=== PATIENT | female | born 1950 | race Caucasian/White ===

== ENCOUNTER 2018-04-10 10:33 | Outpatient (CLI) | payer MEDICARE ==
[2018-04-10 11:30] LABS: Hemoglobin 13.6 g/dL (12.0-16.0); Mean Corpuscular HGB CONC 33.4 g/dL (32.0-36.0); Mean Corpuscular Hemoglobin 28.5 pg (27.0-31.0); Mean Corpuscular Volume 85.3 fL (78.0-98.0); Mean Platelet Volume 7.8 fL (7.4-10.4); Platelet Count 263 thou/uL (130-400); RBC Distribution Width 14.7 % (11.5-14.5); Red Blood Cell (RBC) Count 4.79 mill/uL (4.20-5.40); White Blood Cell (WBC) Count 7.3 thou/uL (4.8-10.8)
[2018-04-10 11:49] LABS: Anion Gap 16 mmol/L (10-20); BUN (Urea Nitrogen) 31 mg/dL (9.8-20.1); Calc. Creatinine Clearance 0 mL/min (70-130); Calcium 10.1 mg/dL (7.8-10.44); Carbon Dioxide 22 mmol/L (23-31); Chloride 105 mmol/L (98-107); Estimated GFR-MDRD 58; Glucose 135 mg/dL (80-115); Potassium 4.5 mmol/L (3.5-5.1); Sodium 138 mmol/L (136-145)
== END 2018-04-10 10:34 | disposition home or self-care (01) ==
LOC: LABBT 10:33
PROVIDERS: ATTEND Internal Medicine Cardiovascular Disease
DX: Z01.812 Encounter for preprocedural laboratory examination (principal); I48.2 Chronic atrial fibrillation
CPT/HCPCS: 80048; 85027

== ENCOUNTER 2018-04-15 06:58 | Day surgery (SDC) | payer MEDICARE ==
[2018-04-10 10:47] VITALS: BMI 61.7
[2018-04-15] MEDS ORDERED: PROPOFOL 20 ML ONE (10:39)
[2018-04-15] MEDS ORDERED: PROPOFOL 200 MG/20 ML VIAL ONE (14:03)
--- NOTE | 2018-04-16 13:24 | OP ---
DATE OF PROCEDURE: 04/15/2018 PREPROCEDURE DIAGNOSIS: Atrial fibrillation. POSTPROCEDURE DIAGNOSIS: Sinus rhythm. PROCEDURE PERFORMED: Successful synchronized cardioversion. PROCEDURE IN DETAIL: Patient was consented for the procedure. Conscious sedation with propofol. Th e patient underwent a synchronized cardioversion at 150 and 200 joules. With 200 joules, this was padgett ccessful. IMPRESSION: Successful synchronized cardioversion.
== END 2018-04-15 12:15 | disposition home or self-care (01) ==
LOC: CCL 06:58
PROVIDERS: ATTEND Internal Medicine Cardiovascular Disease
DX: I48.2 Chronic atrial fibrillation (principal); I10 Essential (primary) hypertension; Z79.01 Long term (current) use of anticoagulants; Z79.899 Other long term (current) drug therapy; Z79.82 Long term (current) use of aspirin; Z88.2 Allergy status to sulfonamides; Z88.5 Allergy status to narcotic agent
CPT/HCPCS: 92960; J2704

== ENCOUNTER 2018-05-16 11:26 | Outpatient (CLI) | payer OTHER ==
[2018-05-16 13:14] LABS: #Basophils 0.1 thou/uL (0.0-0.2); #Eosinphils 0.1 thou/uL (0.0-0.7); #Lymphocytes 1.6 thou/uL (1.20-3.40); #Monocytes 0.7 thou/uL (0.11-0.59); %Basophils 0.9 % (0.0-1.0); %Lymphocytes 25.1 % (21.0-51.0); %Neutrophils 61.9 % (42.0-75.0); Mean Corpuscular HGB CONC 33.7 g/dL (32.0-36.0); Mean Corpuscular Hemoglobin 28.9 pg (27.0-31.0); Mean Corpuscular Volume 85.8 fL (78.0-98.0); Platelet Count 233 thou/uL (130-400); RBC Distribution Width 13.5 % (11.5-14.5); Red Blood Cell (RBC) Count 4.83 mill/uL (4.20-5.40); White Blood Cell (WBC) Count 6.5 thou/uL (4.8-10.8)
--- NOTE | 2018-05-16 13:25 | RAD ---
CHEST PA AND LATERAL TWO VIEWS: HISTORY: A 67-year-old female with a history of a preoperative evaluation. COMPARISON: 08/29/2016 FINDINGS: Mild cardiomegaly. No confluent pneumonia, overt edema, or pleural effusion. IMPRESSION: 1. Mild cardiomegaly. 2. No pneumonia, edema, pleural effusion, or other acute process. 3. Mild chronic lung changes. 4. Atherosclerosis of the aorta with ectasia. POS: ELADIA
[2018-05-16 13:28] LABS: Hemoglobin A1c 6.1 % (4.0-6.0)
[2018-05-16 13:33] LABS: ALT (SGPT) 11 U/L (8-55); AST (SGOT) 13 U/L (5-34); Albumin 3.7 g/dL (3.4-4.8); Alkaline Phosphatase 95 U/L (40-150); Anion Gap 12 mmol/L (10-20); BUN (Urea Nitrogen) 30 mg/dL (9.8-20.1); Bilirubin, Direct 0.3 mg/dL (0.1-0.3); Calc. Creatinine Clearance 0 mL/min (70-130); Calcium 10.3 mg/dL (7.8-10.44); Carbon Dioxide 25 mmol/L (23-31); Chloride 104 mmol/L (98-107); Estimated GFR-MDRD 56; Globulin 3.5 g/dL (2.4-3.5); Glucose 113 mg/dL (80-115); Potassium 4.2 mmol/L (3.5-5.1); Protein, Total 7.2 g/dL (6.0-8.3); Sodium 137 mmol/L (136-145)
== END 2018-05-16 11:27 | disposition home or self-care (01) ==
LOC: LABBT 11:26
PROVIDERS: ATTEND Surgery
DX: Z01.818 Encounter for other preprocedural examination (principal); T85.858A Stenosis due to other internal prosthetic devices, implants and grafts, initial encounter; I51.7 Cardiomegaly; I70.0 Atherosclerosis of aorta; I77.819 Aortic ectasia, unspecified site
CPT/HCPCS: 71046; 80053; 80076; 83036; 85025

== ENCOUNTER 2018-05-23 08:13 | Day surgery (SDC) | payer OTHER ==
[2018-05-16 11:58] VITALS: BMI 61.4
[2018-05-23] MEDS ORDERED: CEFAZOLIN/Water 2 GM/20 ML SYRINGE ONE (08:35)
[2018-05-23] MEDS ORDERED: Heparin 5,000 UNITS/ML VIAL ONE (08:36)
[2018-05-23] MEDS ORDERED: Bupivacaine/Epinephrine 0.25% 30 ML VIAL ONE (10:08)
[2018-05-23] MEDS ORDERED: Fentanyl 250 MCG/5 ML VIAL ONE (10:20)
[2018-05-23] MEDS ORDERED: Midazolam HCl 2 mg/2 ml Vial ONE (10:20)
[2018-05-23] MEDS ORDERED: Fentanyl 100 MCG/2 ML VIAL ONE (12:08)
[2018-05-23] MEDS ORDERED: Lidocaine 1% PF 5 ML VIAL ONE (12:20)
[2018-05-23] MEDS ORDERED: Glycopyrrolate 0.2 MG/ML 5 ML SYRINGE ONE (12:20)
[2018-05-23] MEDS ORDERED: PROPOFOL 200 MG/20 ML VIAL ONE (12:20)
[2018-05-23] MEDS ORDERED: Ondansetron HCl/PF 4 MG/2 ML Vial ONE (12:20)
[2018-05-23] MEDS ORDERED: ePHEDrine/0.9% NaCl/PF SYRINGE 50 mg/10 ml ONE (12:20)
--- NOTE | 2018-05-24 07:38 | OP ---
DATE OF PROCEDURE: 05/23/2018 PREOPERATIVE DIAGNOSIS: Severe gastroesophageal reflux disease with a history of laparoscopic gastri c band. POSTOPERATIVE DIAGNOSIS: Severe gastroesophageal reflux disease with a history of laparoscopic gastr ic band. PROCEDURE: Laparoscopic removal of gastric band and subcutaneous port. SURGEON: Dr. Chuck Trevino ESTIMATED BLOOD LOSS: Minimal. COMPLICATIONS: None. SPECIMEN: None. TECHNIQUE: The patient was taken to the operating room and placed supine on the table. After genera l anesthetic was obtained, arms and legs were double strapped to bariatric table. OG tube was used t o decompress the stomach. Left subcostal 5-mm Optiview trocar placed in the usual fashion and high-f low pneumoperitoneum was obtained. There were multiple adhesions in the abdominal cavity. An upper midline 5 mm port and a right subcostal 5 mm port were placed under direct visualization. Nathansen retractor was placed carefully used to raise the liver off the GE junction and the lap band. The sca r tissue over the band is cauterized. The band is able to be unbuckled. The band is able to be florina stephanie from around the stomach. The tubing going up to the exit site and the posterior abdominal wall w as cut. The left subcostal 5 mm port is enlarged to a 12. This allows the band to be removed. This fascial defect was closed using GraNee needle 0 Vicryl tie. The Nathansen was removed under direct visualization. Pneumoperitoneum was let down. The incision is made over the previous port site. Th e port is dissected away from the abdominal wall. The port and its tubing going into the abdominal c avity are all removed. The lap band and port is able to be reconstructed on the back table without a ny missing components. The wounds were all irrigated and closed using 3-0 Vicryl, 4-0 Monocryl, and Dermabond. The patient went to recovery in stable condition. All instrument counts, needle counts, and lap counts were correct.
== END 2018-05-23 14:28 | disposition home or self-care (01) ==
LOC: SDC 08:13
PROVIDERS: ATTEND Surgery
PROC: 0DP64CZ Removal of Extraluminal Device from Stomach, Percutaneous Endoscopic Approach (ICD-10-PCS; principal; 2018-05-23)
DX: K21.9 Gastro-esophageal reflux disease without esophagitis (principal); I10 Essential (primary) hypertension; I48.91 Unspecified atrial fibrillation; K31.1 Adult hypertrophic pyloric stenosis; E66.01 Morbid (severe) obesity due to excess calories; Z68.44 Body mass index [BMI] 60.0-69.9, adult; Z79.899 Other long term (current) drug therapy; Z79.82 Long term (current) use of aspirin; Z88.2 Allergy status to sulfonamides; Z88.5 Allergy status to narcotic agent; Z91.048 Other nonmedicinal substance allergy status; Z98.84 Bariatric surgery status
CPT/HCPCS: 96374; J1644; J2001; J2250; J2405; J2704; J3010

== ENCOUNTER 2018-07-12 08:51 | Outpatient (CLI) | payer OTHER | END 2018-07-12 08:52 | disposition home or self-care (01) | LOC: DTY/OP 08:51 | PROVIDERS: ATTEND Surgery | DX: E66.01 Morbid (severe) obesity due to excess calories (principal) | CPT/HCPCS: 97802 ==

== ENCOUNTER 2018-08-13 14:30 | Inpatient (IN) | payer MEDICARE ==
[2018-08-20] MEDS ORDERED: CEFAZOLIN 2 GM/50 ML BAG ONE (07:27)
[2018-08-20] MEDS ORDERED: Heparin 5,000 UNITS/ML VIAL ONE (07:28)
[2018-08-20] MEDS ORDERED: Bupivacaine/Epinephrine 0.25% 30 ML VIAL ONE (08:49)
[2018-08-20] MEDS ORDERED: Fentanyl 100 MCG/2 ML VIAL ONE ×2 (09:05→11:11)
[2018-08-20] MEDS ORDERED: SUGAMMADEX SODIUM 200 MG/2 ML VIAL ONE (10:49)
[2018-08-20] MEDS ORDERED: Naloxone HCl 0.4 mg/ml Vial IV PRN (11:13)
[2018-08-20] MEDS ORDERED: diphenhydrAMINE 50 MG/ML VIAL IVP PRN ×2 (11:13→12:09)
[2018-08-20] MEDS ORDERED: Promethazine HCl 25 MG/ML VIAL IM PRN ×2 (11:13→12:09)
[2018-08-20] MEDS ORDERED: Zolpidem Tartrate 5 MG TAB PO PRN (11:13)
[2018-08-20] MEDS ORDERED: diphenhydrAMINE 50 MG/ML VIAL IM PRN (11:13)
[2018-08-20] MEDS ORDERED: fentaNYL Citrate/PF 2,000 MCG in Sodium Chloride 0.9% 60 ML IV PRN (11:13)
[2018-08-20] MEDS ORDERED: diphenhydrAMINE 25 MG CAP PO PRN (11:13)
[2018-08-20] MEDS ORDERED: Communication Order-Pharmacy FS SCH (11:15)
[2018-08-20] MEDS ORDERED: Hydrocodone-Acetamin 15 ML UDCUP PO PRN (12:09)
[2018-08-20] MEDS ORDERED: Dextrose 50% Abboject 50 ML SYRINGE SLOW IVP PRN (12:09)
[2018-08-20] MEDS ORDERED: hydrALAZINE 20 MG/ML VIAL SLOW IVP PRN (12:09)
[2018-08-20] MEDS ORDERED: Ondansetron PF 4 MG/2 ML Vial IVP PRN (12:09)
[2018-08-20] MEDS ORDERED: Acetaminophen 1,000 MG in Premix Bag 1 BAG IVPB SCH (12:09)
[2018-08-20] MEDS ORDERED: Dextrose 5% in Water 1,000 ML IV PRN (12:09)
[2018-08-20 12:45] VITALS: BMI 61.9
--- NOTE | 2018-08-20 13:34 | OP ---
DATE OF PROCEDURE: 08/20/2018 PREOPERATIVE DIAGNOSES: 1. Morbid obesity with a body mass index of 62. 2. Hypertension. 3. Chronic atrial fibrillation. 4. Chronic joint pain. POSTOPERATIVE DIAGNOSES: 1. Morbid obesity with a body mass index of 62. 2. Hypertension. 3. Chronic atrial fibrillation. 4. Chronic joint pain. PROCEDURE: 1. Laparoscopic sleeve gastrectomy [place] staple line reinforcements and 38 Greek bougie. 2. Esophagogastroduodenoscopy. SURGEON: Dr. Chuck Trevino ANESTHESIA: General. ESTIMATED BLOOD LOSS: 50 mL. COMPLICATIONS: None. FINDINGS: Normal postoperative EGD. PROCEDURE IN DETAIL: The patient was taken to the operating room, placed supine on the table. After general anesthetic was obtained, arms and legs are double strapped to bariatric table. OG tube was used to decompress the stomach. Left subcostal 5-mm Optiview trocar was placed in the usual fashion without injury and high-flow pneumoperitoneum was obtained. Left and right abdominal trocar ports as well as a right subcostal 5 mm port were placed under direct visualization. A 5 mm incision made th e xiphoid and Lucas used to raise the liver off the GE junction. There were multiple adhesions f rom previous surgery in the upper abdomen. Some of these were taken down sharply without injury. Sh ort gastrics were taken down from a distance of 5 cm proximal to the pylorus all the way to the left ralph of diaphragm. Left ralph, angle of His completely dissected as is the posterior fundus. There i s no hiatal hernia. Short gastric taken down to a distance of 6 cm proximal to the pylorus. OG tube was removed and 38 bougie was brought in, its tip left in the antrum of the stomach. Multiple loads of an [place] stapling device with [place] staple and reinforcements were used to form the sleeve. The first was a green load fired up a distance of 6 cm proximal to pylorus angled up towards the incisur a. Multiple loads were then fired up along the bougie, stomach is completely transected at the angle of His. The stomach was removed from the left abdominal incision. This fascial defect was closed u sing GraNee needle 0 Vicryl tie. There is no bleeding in the abdomen. Bougie was removed. EGD scop e was passed into the esophagus, stomach to the level of the duodenum without obstruction or strictur e. There is no air leakage or bleeding on the staple line. EGD scope was used to decompress the sto mach, it was pulled and removed. The Nathansen retractor was removed under direct visualization with out bleeding. All ports were removed under direct visualization. There was some oozing at the right lower abdominal trocar site and this was closed using GraNee needle 0 Vicryl tie as well. Pneumoper itoneum was let down. All ports were irrigated and closed using 4-0 Monocryl and Dermabond. The pat ient was en route to recovery in stable condition. All instrument counts, needle counts, lap counts were correct.
[2018-08-20] MEDS: Ondansetron PF 4 MG/2 ML Vial IVP PRN ×2 (16:22→23:23)
[2018-08-20] MEDS: D5 1/2 NS w/20 mEq KCL 1,000 ML IV SCH ×3 (16:23→23:24)
[2018-08-20] MEDS ORDERED: ePHEDrine/0.9% NaCl/PF SYRINGE 50 mg/10 ml ONE (17:38)
[2018-08-20] MEDS ORDERED: PROPOFOL 200 MG/20 ML VIAL ONE (17:38)
[2018-08-20] MEDS ORDERED: Glycopyrrolate 0.2 MG/ML 5 ML SYRINGE ONE ×2 (17:38)
[2018-08-20] MEDS ORDERED: Ondansetron PF 4 MG/2 ML Vial ONE (17:38)
[2018-08-20] MEDS ORDERED: Lidocaine 1% PF 5 ML VIAL ONE (17:38)
[2018-08-20] MEDS ORDERED: Metoprolol Tartrate 50 MG TAB PO SCH (21:00)
[2018-08-20] MEDS: Metoprolol Tartrate 50 MG TAB PO SCH (21:12)
[2018-08-20] MEDS: Flecainide 50 MG TAB PO SCH (21:12)
[2018-08-20] MEDS: Acetaminophen 1,000 MG in Premix Bag 1 BAG IVPB SCH (23:24)
[2018-08-21] MEDS: Acetaminophen 1,000 MG in Premix Bag 1 BAG IVPB SCH ×2 (05:20→11:12)
[2018-08-21 05:25] LABS: #Lymphocytes 0.7 thou/uL (1.20-3.40); #Monocytes 0.7 thou/uL (0.11-0.59); %Basophils 0.2 % (0.0-1.0); %Eosinophils 0.5 % (0.0-10.0); %Lymphocytes 7.8 % (21.0-51.0); %Monocytes 8.5 % (0.0-10.0); Anion Gap 12 mmol/L (10-20); BUN (Urea Nitrogen) 39 mg/dL (9.8-20.1); Calc. Creatinine Clearance 148 mL/min (70-130); Calcium 9.2 mg/dL (7.8-10.44); Carbon Dioxide 24 mmol/L (23-31); Chloride 105 mmol/L (98-107); Estimated GFR-MDRD 59; Glucose 147 mg/dL (80-115); Hemoglobin 12.3 g/dL (12.0-16.0); Mean Corpuscular HGB CONC 31.3 g/dL (32.0-36.0); Mean Corpuscular Hemoglobin 28.3 pg (27.0-31.0); Mean Corpuscular Volume 90.3 fL (78.0-98.0); Mean Platelet Volume 9.1 fL (7.4-10.4); Platelet Count 216 thou/uL (130-400); Potassium 4.7 mmol/L (3.5-5.1); RBC Distribution Width 12.8 % (11.5-14.5); Red Blood Cell (RBC) Count 4.33 mill/uL (4.20-5.40); Sodium 136 mmol/L (136-145); White Blood Cell (WBC) Count 8.5 thou/uL (4.8-10.8)
--- NOTE | 2018-08-21 08:00 | OP ---
DATE OF PROCEDURE: 08/20/2018 PREOPERATIVE DIAGNOSES: 1. Morbid obesity with a body mass index of 65 2. Hypertension. 3. Chronic atrial fibrillation. POSTOPERATIVE DIAGNOSES: 1. Morbid obesity with a body mass index of 65 2. Hypertension. 3. Chronic atrial fibrillation. PROCEDURE: 1. Laparoscopic sleeve gastrectomy with [place] staple and reinforcements and 38 [place]ian bougie. 2. EGD. SURGEON: Dr. Chuck Trevino ANESTHESIA: General. ESTIMATED BLOOD LOSS: Minimal. COMPLICATIONS: None. FINDINGS: Normal postoperative EGD. PROCEDURE IN DETAIL: The patient was taken to the operating room and placed supine on the table. Af ter general anesthetic was obtained, arms and legs were double strapped to bariatric table. OG tube was used to decompress the stomach. The abdomen is prepped and draped in sterile fashion. Left subc ostal 5-mm Optiview trocar was placed in the usual fashion and high-flow pneumoperitoneum was obtaine d. A right subcostal 5 mm port is placed as well. There were a few adhesions in the posterior abdom inal wall and the upper abdomen. There were significant adhesions in the lower abdomen from prior pa sh incisional hernia repair and for the upper abdominal adhesions were taken down and placed the lapa roscopic port. There was no damage to any intraabdominal structures during the dissection. The diss ection was all done sharply without energy. Left and right abdominal 12 mm ports were placed under d irect visualization. A 5 mm incision was made at the xiphoid and the Nathansen's used to raise the l iver off the GE junction. The short gastrics were taken down to a distance of 6 cm proximal to the p ylorus all the way to the left ralph of the diaphragm. Left ralph, angle of His, posterior fundus is c ompletely dissected. There were a few anterior adhesions from prior lap band that were taken down. A 38 bougie is brought in and its tip left in the antrum of the stomach and the OG tube was removed. Multiple loads of an [place] stapling device with [place] staple line reinforcements used to form the s leeve. The first was a green load fired up at a distance of 6 cm proximal to the pylorus angled up t owards the incisura. Multiple loads were then fired up along the bougie, stomach is completely trans ected at the angle of His. The stomach was removed from the left abdominal incision. This fascial d efects closed using the GraNee needle and the 0 Vicryl tie. The port is then replaced because the padgett ture was not tied down. The bougie was removed. EGD scope was passed into the esophagus, stomach to the level of the duodenum without obstruction. There was no stricture at the incisura. No air leak age or bleeding through the staple line. EGD scope was used to decompress the stomach. It was pulle d and removed. Nathansen retractor was removed under direct visualization without bleeding. All por ts are removed under direct visualization. Pneumoperitoneum was let down. GraNee needle 0 Vicryl ti es used to close the 12-mm trocar site in the right abdomen as well secondary to bleeding. All port sites were infiltrated using local anesthetic. All ports are removed under camera visualization. Pn eumoperitoneum was let down. The patient is en route to recovery in stable condition. All instrumen t counts, needle counts, lap counts are correct.
[2018-08-21] MEDS: Metoprolol Tartrate 50 MG TAB PO SCH (08:43)
[2018-08-21] MEDS ORDERED: Pantoprazole 40 MG VIAL IVP SCH (09:00)
[2018-08-21] MEDS ORDERED: Lisinopril 20 MG TAB PO SCH (09:00)
[2018-08-21] MEDS ORDERED: Enoxaparin Sodium 40 MG/0.4 ML SYRINGE SC SCH (09:00)
[2018-08-21] MEDS: Flecainide 50 MG TAB PO SCH (09:28)
[2018-08-21] MEDS ORDERED: Hydrocodone-Acetamin 15 ML UDCUP PO PRN (10:05)
[2018-08-21 15:55] VITALS: BP 148/63; TEMP 97.4
--- NOTE | 2018-08-22 02:46 | DIS ---
DATE OF ADMISSION: 08/20/2018 DATE OF DISCHARGE: 08/21/2018 ADMIT DIAGNOSES: 1. Morbid obesity. 2. Hypertension. DISCHARGE DIAGNOSES: 1. Morbid obesity. 2. Hypertension. PROCEDURE: Laparoscopic sleeve gastrectomy by Dr. Trevino without complication. CONDITION AT DISCHARGE: Improved. STAFF: Chuck Trevino MD HOSPITAL COURSE: On postop day #1, the patient had early date nausea. This improved throughout the day. She was able to tolerate broth and the liquids without difficulty. She is being discharged altaf e. She is going to resume her Xarelto tomorrow. Hold her Lasix and hydrochlorothiazide until follow up.
== END 2018-08-21 16:55 | disposition home or self-care (01) | DRG 621 ==
LOC: SURG A 08-20 06:18 → SURG B 08-20 11:50
PROVIDERS: ADMIT Surgery; ATTEND Surgery
PROC: 0DB60Z3 Excision of Stomach, Open Approach, Vertical (ICD-10-PCS; principal; 2018-08-20)
PROC: 0DJ08ZZ Inspection of Upper Intestinal Tract, Via Natural or Artificial Opening Endoscopic (ICD-10-PCS; 2018-08-20)
DX: E66.01 Morbid (severe) obesity due to excess calories (principal); I10 Essential (primary) hypertension; Z68.44 Body mass index [BMI] 60.0-69.9, adult; G89.29 Other chronic pain; I48.2 Chronic atrial fibrillation; T80.89XA Other complications following infusion, transfusion and therapeutic injection, initial encounter; R11.0 Nausea; Z79.899 Other long term (current) drug therapy; Z79.82 Long term (current) use of aspirin; Z79.891 Long term (current) use of opiate analgesic; Z79.01 Long term (current) use of anticoagulants; Z88.2 Allergy status to sulfonamides; Z88.5 Allergy status to narcotic agent; Z91.048 Other nonmedicinal substance allergy status
CPT/HCPCS: 36415; 80048; 85025; 88307; 88312; 94760; C9113; J0131; J1644; J1650; J2001; J2405; J2550; J2704; J3010; J7050

== ENCOUNTER 2018-08-13 14:40 | Outpatient (CLI) | payer MEDICARE ==
[2018-08-13 15:30] LABS: #Basophils 0.1 thou/uL (0.0-0.2); #Eosinphils 0.2 thou/uL (0.0-0.7); #Lymphocytes 2.3 thou/uL (1.20-3.40); #Monocytes 0.8 thou/uL (0.11-0.59); #Neutrophils 4.2 thou/uL (1.40-6.50); %Eosinophils 2.2 % (0.0-10.0); %Lymphocytes 30.3 % (21.0-51.0); %Monocytes 10.3 % (0.0-10.0); %Neutrophils 56.3 % (42.0-75.0); Hemoglobin 14.1 g/dL (12.0-16.0); Mean Corpuscular HGB CONC 31.9 g/dL (32.0-36.0); Mean Corpuscular Hemoglobin 28.6 pg (27.0-31.0); Mean Corpuscular Volume 89.7 fL (78.0-98.0); Mean Platelet Volume 8.4 fL (7.4-10.4); Platelet Count 274 thou/uL (130-400); RBC Distribution Width 12.9 % (11.5-14.5); Red Blood Cell (RBC) Count 4.94 mill/uL (4.20-5.40); White Blood Cell (WBC) Count 7.5 thou/uL (4.8-10.8)
[2018-08-13 15:49] LABS: Hemoglobin A1c 6.4 % (4.0-6.0)
[2018-08-13 15:56] LABS: ALT (SGPT) 12 U/L (8-55); AST (SGOT) 13 U/L (5-34); Albumin 4.2 g/dL (3.4-4.8); Alkaline Phosphatase 100 U/L (40-150); Anion Gap 16 mmol/L (10-20); BUN (Urea Nitrogen) 36 mg/dL (9.8-20.1); Bilirubin, Direct 0.3 mg/dL (0.1-0.3); Calc. Creatinine Clearance 0 mL/min (70-130); Calcium 10.4 mg/dL (7.8-10.44); Carbon Dioxide 21 mmol/L (23-31); Chloride 107 mmol/L (98-107); Estimated GFR-MDRD 55; Globulin 3.2 g/dL (2.4-3.5); Glucose 127 mg/dL (80-115); Potassium 4.1 mmol/L (3.5-5.1); Protein, Total 7.4 g/dL (6.0-8.3); Sodium 140 mmol/L (136-145)
== END 2018-08-13 14:41 | disposition home or self-care (01) ==
LOC: LABBT 14:40
PROVIDERS: ATTEND Surgery
DX: Z01.812 Encounter for preprocedural laboratory examination (principal); E66.01 Morbid (severe) obesity due to excess calories; I10 Essential (primary) hypertension; Z68.44 Body mass index [BMI] 60.0-69.9, adult
CPT/HCPCS: 80053; 80076; 83036; 85025

== ENCOUNTER 2021-09-04 19:30 | Outpatient (CLI) | payer MEDICARE | END 2021-09-04 19:31 | disposition home or self-care (01) | LOC: SLEEPLAB 19:30 | PROVIDERS: ATTEND Physician Assistant | DX: G47.33 Obstructive sleep apnea (adult) (pediatric) (principal); R06.83 Snoring; G47.10 Hypersomnia, unspecified; G47.00 Insomnia, unspecified; I48.91 Unspecified atrial fibrillation; R06.02 Shortness of breath; E11.9 Type 2 diabetes mellitus without complications; I10 Essential (primary) hypertension | CPT/HCPCS: 95811 ==

== ENCOUNTER 2022-11-11 12:48 | Inpatient (IN) | payer MEDICARE ==
[2022-11-11 13:35] LABS: ALT (SGPT) 12 U/L (8-55); AST (SGOT) 15 U/L (5-34); Alkaline Phosphatase 98 U/L (40-110); Anion Gap 12 mmol/L (10-20); BUN (Urea Nitrogen) 29 mg/dL (9.8-20.1); Bilirubin, Total 1.4 mg/dL (0.2-1.2); Calc. Creatinine Clearance 0 mL/min (70-130); Calcium 9.4 mg/dL (7.8-10.44); Carbon Dioxide 23 mmol/L (23-31); Chloride 111 mmol/L (98-107); Estimated GFR 69; Globulin 2.9 g/dL (2.4-3.5); Glucose 108 mg/dL (83-110); Potassium 3.9 mmol/L (3.5-5.1); Protein, Total 5.9 g/dL (5.8-8.1); Sodium 142 mmol/L (136-145)
[2022-11-11 13:38] LABS: Hemoglobin 6.7 g/dL (12.0-16.0); Mean Corpuscular Hemoglobin 16.8 pg (27.0-31.0); Mean Corpuscular Volume 60.1 fl (78.0-98.0); Mean Platelet Volume 6.6 fL (7.4-10.4); Platelet Count 223 10x3/uL (130-400); RBC Distribution Width 20.9 % (11.5-14.5); Red Blood Cell (RBC) Count 3.98 mill/uL (4.20-5.40)
[2022-11-11 13:51] LABS: #Basophils 0.1 thou/uL (0.0-0.2); #Eosinphils 0.1 thou/uL (0.0-0.7); #Lymphocytes 1.1 thou/uL (1.20-3.40); #Monocytes 0.7 thou/uL (0.11-0.59); #Neutrophils 2.9 thou/uL (1.40-6.50); %Basophils 1.6 % (0.0-1.0); %Eosinophils 2.2 % (0.0-10.0); %Lymphocytes 22.1 % (21.0-51.0); %Neutrophils 60.1 % (42.0-75.0); Anisocytosis SLIGHT = 6-15 cells (100X) (0-5/hpf); Hypochromia MODERATE=16-30 cells (100X) (0-5/hpf); MDiff Complete? YES; Microcytosis MODERATE=15-30 cells (100X) (0-5/hpf); Ovalocytes SLIGHT = 2-5 cells (100X) (0-1/hpf); Platelet Morphology Comment Appears Adequate; Polychromasia SLIGHT = 2-3 cells (100X) (0-2/hpf); Reflex for Review?? YES; Target Cells SLIGHT = 2-5 cells (100X) (0-1/hpf); Tear Drops SLIGHT = 2-5 cells (100X) (0-1/hpf); White Blood Cell (WBC) Count 4.8 10x3/uL (4.8-10.8)
[2022-11-11] MEDS ORDERED: Furosemide 20 MG/2 ML VIAL ONE (17:44)
[2022-11-11] MEDS ORDERED: Ondansetron PF 4 MG/2 ML Vial IVP PRN (18:30)
[2022-11-11] MEDS ORDERED: Acetaminophen 325 MG TAB PO PRN (18:30)
[2022-11-11] MEDS ORDERED: Ondansetron ODT 4 MG TAB SL PRN (18:30)
[2022-11-11] MEDS ORDERED: Magnesium 2 GM/50 ML(in water) 2 GM in Premix Bag 1 BAG IVPB SCH (19:00)
[2022-11-11 19:25] LABS: Magnesium 1.8 mg/dL (1.6-2.6)
[2022-11-11] MEDS ORDERED: Aspirin 81 mg Enteric Coated Tablet PO SCH (20:30)
[2022-11-11] MEDS: Aspirin 81 mg Enteric Coated Tablet PO SCH (22:28)
[2022-11-11] MEDS: Metoprolol Tartrate 100 MG TAB PO SCH (22:37)
[2022-11-11] MEDS: Flecainide 50 MG TAB PO SCH (22:37)
[2022-11-12 01:32] VITALS: BMI 66.4
[2022-11-12 06:05] LABS: ALT (SGPT) 12 U/L (8-55); AST (SGOT) 17 U/L (5-34); Albumin 2.9 g/dL (3.4-4.8); Alkaline Phosphatase 92 U/L (40-110); Anion Gap 14 mmol/L (10-20); BUN (Urea Nitrogen) 28 mg/dL (9.8-20.1); Bilirubin, Total 2.8 mg/dL (0.2-1.2); Calc. Creatinine Clearance 170 mL/min (70-130); Calcium 9.3 mg/dL (7.8-10.44); Carbon Dioxide 21 mmol/L (23-31); Chloride 110 mmol/L (98-107); Estimated GFR 74; Globulin 2.8 g/dL (2.4-3.5); Glucose 96 mg/dL (83-110); Potassium 3.8 mmol/L (3.5-5.1); Protein, Total 5.7 g/dL (5.8-8.1); Sodium 141 mmol/L (136-145)
[2022-11-12 06:50] LABS: Anisocytosis MODERATE=16-30 cells (100X) (0-5/hpf); Eosinophils 1 % (0-10); Hemoglobin 7.2 g/dL (12.0-16.0); Hypochromia MODERATE=16-30 cells (100X) (0-5/hpf); Lymphocytes 23 % (21-51); MDiff Complete? YES; Mean Corpuscular Hemoglobin 17.4 pg (27.0-31.0); Mean Corpuscular Volume 62.1 fl (78.0-98.0); Mean Platelet Volume 6.8 fL (7.4-10.4); Microcytosis SLIGHT = 6-15 cells (100X) (0-5/hpf); Monocytes 11 % (0-10); Neutrophil 65 % (42-75); Ovalocytes SLIGHT = 2-5 cells (100X) (0-1/hpf); Platelet Count 205 10x3/uL (130-400); Platelet Morphology Comment Appears Adequate; Polychromasia SLIGHT = 2-3 cells (100X) (0-2/hpf); RBC Distribution Width 23.3 % (11.5-14.5); Red Blood Cell (RBC) Count 4.15 mill/uL (4.20-5.40); White Blood Cell (WBC) Count 4.3 10x3/uL (4.8-10.8)
[2022-11-12] MEDS: Flecainide 50 MG TAB PO SCH (08:11)
[2022-11-12] MEDS: Aspirin 81 mg Enteric Coated Tablet PO SCH (08:12)
[2022-11-12] MEDS: Metoprolol Tartrate 100 MG TAB PO SCH ×2 (08:12→20:20)
[2022-11-12] MEDS: Acetaminophen 325 MG TAB PO SCH ×4 (10:06→22:04)
[2022-11-12] MEDS: Furosemide 40 MG/4 ML VIAL SLOW IVP SCH (14:25)
[2022-11-12] MEDS ORDERED: GoLYTELY 4,000 ml Bottle PO SCH (19:45)
[2022-11-12] MEDS ORDERED: AFRIN NASAL MIST 15 ML BOT NS SCH (21:00)
[2022-11-12] MEDS: Oxymetazoline HCl 0.05% (30 ML BOT) NS SCH (22:02)
[2022-11-13 05:31] LABS: Hemoglobin A1c 5.5 % (4.0-6.0)
[2022-11-13 05:39] LABS: Anion Gap 13 mmol/L (10-20); BUN (Urea Nitrogen) 28 mg/dL (9.8-20.1); Calc. Creatinine Clearance 158 mL/min (70-130); Calcium 9.4 mg/dL (7.8-10.44); Carbon Dioxide 23 mmol/L (23-31); Cardiac Risk 3.2 (Less than 4.5); Chloride 109 mmol/L (98-107); Cholesterol 95 mg/dl (< 200 Desired); Estimated GFR 65; Glucose 96 mg/dL (83-110); HDL Cholesterol 30 mg/dL (>60 Neg Risk); LDL Cholesterol, Calculated 49 mg/dL; Potassium 3.9 mmol/L (3.5-5.1); Sodium 141 mmol/L (136-145); Triglycerides 81 mg/dL (Less than 150)
[2022-11-13 05:51] LABS: Band 5 % (5-11); Eosinophils 1 % (0-10); Hemoglobin 7.6 g/dL (12.0-16.0); Hypochromia SLIGHT = 6-15 cells (100X) (0-5/hpf); Lymphocytes 21 % (21-51); MDiff Complete? YES; Mean Corpuscular Hemoglobin 17.6 pg (27.0-31.0); Mean Corpuscular Volume 62.9 fl (78.0-98.0); Mean Platelet Volume 7.5 fL (7.4-10.4); Monocytes 4 % (0-10); Neutrophil 68 % (42-75); Platelet Count 232 10x3/uL (130-400); Platelet Morphology Comment Appears Adequate; Polychromasia SLIGHT = 2-3 cells (100X) (0-2/hpf); RBC Distribution Width 23.3 % (11.5-14.5); Reactive Lymphocytes 1 % (0-10); Red Blood Cell (RBC) Count 4.32 mill/uL (4.20-5.40)
[2022-11-13] MEDS: Furosemide 40 MG/4 ML VIAL SLOW IVP SCH ×2 (05:57→14:36)
[2022-11-13] MEDS: Acetaminophen 325 MG TAB PO SCH ×5 (05:57→21:47)
[2022-11-13] MEDS: Spironolactone 25 MG TAB PO SCH (09:22)
[2022-11-13] MEDS: Aspirin 81 mg Enteric Coated Tablet PO SCH (09:22)
[2022-11-13] MEDS: Metoprolol Tartrate 100 MG TAB PO SCH ×2 (09:22→21:47)
[2022-11-13] MEDS: Oxymetazoline HCl 0.05% (30 ML BOT) NS SCH (09:26)
[2022-11-13 09:36] LABS: Anisocytosis MODERATE=16-30 cells (100X) (0-5/hpf); Band 1 % (5-11); Eosinophils 1 % (0-10); Hemoglobin 7.5 g/dL (12.0-16.0); Hypochromia MODERATE=16-30 cells (100X) (0-5/hpf); Lymphocytes 11 % (21-51); MDiff Complete? YES; Mean Corpuscular Hemoglobin 17.4 pg (27.0-31.0); Mean Corpuscular Volume 62.2 fl (78.0-98.0); Mean Platelet Volume 7.1 fL (7.4-10.4); Microcytosis MODERATE=15-30 cells (100X) (0-5/hpf); Monocytes 11 % (0-10); Neutrophil 72 % (42-75); Ovalocytes SLIGHT = 2-5 cells (100X) (0-1/hpf); Platelet Count 229 10x3/uL (130-400); Platelet Morphology Comment Appears Adequate; Polychromasia MODERATE = 3-4 cells (100X) (0-2/hpf); RBC Distribution Width 23.7 % (11.5-14.5); Reactive Lymphocytes 4 % (0-10); Schistocytes SLIGHT = 2-5 cells (100X) (0-1/hpf); Stomatocytes SLIGHT = 2-5 cells (100X) (0-1/hpf); Target Cells SLIGHT = 2-5 cells (100X) (0-1/hpf); Tear Drops SLIGHT = 2-5 cells (100X) (0-1/hpf); White Blood Cell (WBC) Count 4.5 10x3/uL (4.8-10.8)
[2022-11-13] MEDS ORDERED: Metolazone 5 MG TAB PO SCH (17:15)
[2022-11-14] MEDS: Oxymetazoline HCl 0.05% (30 ML BOT) NS SCH ×4 (00:33→21:59)
[2022-11-14] MEDS: Furosemide 40 MG/4 ML VIAL SLOW IVP SCH ×2 (05:51→14:28)
[2022-11-14] MEDS: Acetaminophen 325 MG TAB PO SCH ×5 (05:51→22:00)
[2022-11-14 05:59] LABS: Anion Gap 13 mmol/L (10-20); BUN (Urea Nitrogen) 27 mg/dL (9.8-20.1); Calc. Creatinine Clearance 149 mL/min (70-130); Calcium 9.4 mg/dL (7.8-10.44); Carbon Dioxide 25 mmol/L (23-31); Chloride 106 mmol/L (98-107); Estimated GFR 63; Glucose 95 mg/dL (83-110); Potassium 3.6 mmol/L (3.5-5.1); Sodium 140 mmol/L (136-145)
[2022-11-14] MEDS ORDERED: Metolazone 5 MG TAB PO SCH (08:15)
[2022-11-14] MEDS: Aspirin 81 mg Enteric Coated Tablet PO SCH (08:43)
[2022-11-14] MEDS: Spironolactone 25 MG TAB PO SCH (08:43)
[2022-11-14] MEDS: Metoprolol Tartrate 100 MG TAB PO SCH ×2 (08:43→20:43)
[2022-11-15] MEDS: Acetaminophen 325 MG TAB PO SCH ×5 (05:47→21:34)
[2022-11-15] MEDS: Furosemide 40 MG/4 ML VIAL SLOW IVP SCH ×2 (05:48→13:44)
[2022-11-15] MEDS: Spironolactone 25 MG TAB PO SCH (09:12)
[2022-11-15] MEDS: Oxymetazoline HCl 0.05% (30 ML BOT) NS SCH ×2 (09:12→20:51)
[2022-11-15] MEDS: Metoprolol Tartrate 100 MG TAB PO SCH ×2 (09:12→20:51)
[2022-11-15] MEDS: Aspirin 81 mg Enteric Coated Tablet PO SCH (09:12)
[2022-11-15 10:27] LABS: Hemoglobin 7.1 g/dL (12.0-16.0); Mean Corpuscular HGB CONC 27.4 g/dL (32.0-36.0); Mean Corpuscular Hemoglobin 17.1 pg (27.0-31.0); Mean Corpuscular Volume 62.3 fl (78.0-98.0); Mean Platelet Volume 6.6 fL (7.4-10.4); Platelet Count 223 10x3/uL (130-400); RBC Distribution Width 24.3 % (11.5-14.5); Red Blood Cell (RBC) Count 4.16 mill/uL (4.20-5.40)
[2022-11-15 11:37] LABS: Eosinophils 5 % (0-10); Hypochromia MARKED = >30 cells (100X) (0-5/hpf); Lymphocytes 35 % (21-51); MDiff Complete? YES; Microcytosis MARKED = >30 cells (100X) (0-5/hpf); Monocytes 8 % (0-10); Neutrophil 52 % (42-75); Platelet Morphology Comment Appears Adequate; Polychromasia SLIGHT = 2-3 cells (100X) (0-2/hpf); Schistocytes SLIGHT = 2-5 cells (100X) (0-1/hpf)
[2022-11-15] MEDS ORDERED: GoLYTELY 4,000 ml Bottle PO SCH (17:00)
[2022-11-16] MEDS: Acetaminophen 325 MG TAB PO SCH ×4 (06:03→17:52)
[2022-11-16] MEDS: Furosemide 40 MG/4 ML VIAL SLOW IVP SCH ×2 (06:06→14:12)
[2022-11-16 06:35] LABS: Anion Gap 14 mmol/L (10-20); BUN (Urea Nitrogen) 24 mg/dL (9.8-20.1); Calc. Creatinine Clearance 127 mL/min (70-130); Calcium 9.6 mg/dL (7.8-10.44); Carbon Dioxide 32 mmol/L (23-31); Chloride 98 mmol/L (98-107); Estimated GFR 54; Glucose 81 mg/dL (83-110); Potassium 3.5 mmol/L (3.5-5.1); Sodium 140 mmol/L (136-145)
[2022-11-16] MEDS ORDERED: Midazolam HCl 2 mg/2 ml Vial ONE (08:58)
[2022-11-16] MEDS ORDERED: Ketamine 50 MG/ML (10ML VIAL) ONE (08:58)
[2022-11-16] MEDS ORDERED: Dexmedetomidine 200 MCG/2 ML VIAL ONE (08:58)
[2022-11-16] MEDS ORDERED: PROPOFOL 200 MG/20 ML VIAL ONE (09:08)
[2022-11-16] MEDS ORDERED: Lidocaine 1% PF 5 ML VIAL ONE (09:08)
[2022-11-16] MEDS ORDERED: Promethazine HCl 25 MG/ML VIAL IM PRN (09:26)
[2022-11-16] MEDS ORDERED: Ondansetron HCl/PF 4 MG/2 ML Vial IVP PRN (09:26)
[2022-11-16] MEDS: Aspirin 81 mg Enteric Coated Tablet PO SCH (11:12)
[2022-11-16] MEDS: Spironolactone 25 MG TAB PO SCH (11:13)
[2022-11-16] MEDS: Oxymetazoline HCl 0.05% (30 ML BOT) NS SCH ×2 (11:14→20:43)
[2022-11-16] MEDS: Metoprolol Tartrate 100 MG TAB PO SCH ×2 (11:14→20:39)
[2022-11-17] MEDS: Acetaminophen 325 MG TAB PO SCH ×5 (00:27→17:13)
[2022-11-17 06:00] LABS: Hemoglobin 7.4 g/dL (12.0-16.0); Mean Corpuscular HGB CONC 28.6 g/dL (32.0-36.0); Mean Corpuscular Hemoglobin 17.6 pg (27.0-31.0); Mean Corpuscular Volume 61.5 fl (78.0-98.0); Mean Platelet Volume 7.6 fL (7.4-10.4); Platelet Count 220 10x3/uL (130-400); RBC Distribution Width 24.6 % (11.5-14.5); Red Blood Cell (RBC) Count 4.19 mill/uL (4.20-5.40); White Blood Cell (WBC) Count 4.2 10x3/uL (4.8-10.8)
[2022-11-17] MEDS: Furosemide 40 MG/4 ML VIAL SLOW IVP SCH (06:15)
[2022-11-17 06:30] LABS: Anion Gap 14 mmol/L (10-20); BUN (Urea Nitrogen) 25 mg/dL (9.8-20.1); Calc. Creatinine Clearance 131 mL/min (70-130); Calcium 9.4 mg/dL (7.8-10.44); Carbon Dioxide 32 mmol/L (23-31); Chloride 97 mmol/L (98-107); Estimated GFR 56; Glucose 78 mg/dL (83-110); Potassium 3.3 mmol/L (3.5-5.1); Sodium 140 mmol/L (136-145)
[2022-11-17 06:40] LABS: Band 1 % (5-11); Eosinophils 2 % (0-10); Hypochromia MODERATE=16-30 cells (100X) (0-5/hpf); Lymphocytes 25 % (21-51); MDiff Complete? YES; Microcytosis MODERATE=15-30 cells (100X) (0-5/hpf); Monocytes 6 % (0-10); Neutrophil 66 % (42-75); Tear Drops SLIGHT = 2-5 cells (100X) (0-1/hpf)
[2022-11-17] MEDS: Metoprolol Tartrate 100 MG TAB PO SCH (08:19)
[2022-11-17] MEDS: Spironolactone 25 MG TAB PO SCH (08:19)
[2022-11-17] MEDS: Aspirin 81 mg Enteric Coated Tablet PO SCH (08:19)
[2022-11-17] MEDS: Oxymetazoline HCl 0.05% (30 ML BOT) NS SCH (08:24)
[2022-11-17] MEDS ORDERED: Potassium Chloride 20 MEQ TAB PO SCH (09:00)
[2022-11-17] MEDS ORDERED: Spironolactone 25 MG TAB PO SCH (09:00)
[2022-11-17] MEDS ORDERED: Iron, Sodium Ferric Gluconate 125 MG in Sodium Chloride 0.9% 100 ML IVPB SCH (12:00)
[2022-11-17 16:04] VITALS: TEMP 97.8
[2022-11-17 19:53] VITALS: BP 130/74
[2022-11-18] MEDS ORDERED: Spironolactone 25 MG TAB PO SCH (08:00)
[2022-11-18] MEDS ORDERED: Furosemide 20 MG TAB PO SCH (09:00)
== END 2022-11-17 22:00 | DRG 811 ==
LOC: ERS 12:48 → NEURO 16:46 → ERS 17:50
PROVIDERS: ADMIT Specialist; ATTEND Specialist
PROC: 30233N1 Transfusion of Nonautologous Red Blood Cells into Peripheral Vein, Percutaneous Approach (ICD-10-PCS; principal; 2022-11-11)
PROC: 0DB98ZX Excision of Duodenum, Via Natural or Artificial Opening Endoscopic, Diagnostic (ICD-10-PCS; 2022-11-16)
PROC: 0DB78ZX Excision of Stomach, Pylorus, Via Natural or Artificial Opening Endoscopic, Diagnostic (ICD-10-PCS; 2022-11-16)
PROC: 0DJD8ZZ Inspection of Lower Intestinal Tract, Via Natural or Artificial Opening Endoscopic (ICD-10-PCS; 2022-11-16)
DX: D50.9 Iron deficiency anemia, unspecified (principal); I50.33 Acute on chronic diastolic (congestive) heart failure; I48.19 Other persistent atrial fibrillation; Z68.44 Body mass index [BMI] 60.0-69.9, adult; I11.0 Hypertensive heart disease with heart failure; K29.80 Duodenitis without bleeding; K57.30 Diverticulosis of large intestine without perforation or abscess without bleeding; K64.8 Other hemorrhoids; K64.4 Residual hemorrhoidal skin tags; Z20.822 Contact with and (suspected) exposure to COVID-19; G47.33 Obstructive sleep apnea (adult) (pediatric); K21.9 Gastro-esophageal reflux disease without esophagitis; E11.9 Type 2 diabetes mellitus without complications; I27.20 Pulmonary hypertension, unspecified; E66.01 Morbid (severe) obesity due to excess calories; Z91.199 Patient's noncompliance with other medical treatment and regimen due to unspecified reason; Z86.73 Personal history of transient ischemic attack (TIA), and cerebral infarction without residual deficits; Z90.49 Acquired absence of other specified parts of digestive tract; Z79.899 Other long term (current) drug therapy; Z88.5 Allergy status to narcotic agent; Z88.8 Allergy status to other drugs, medicaments and biological substances; Z88.2 Allergy status to sulfonamides; Z98.51 Tubal ligation status
CPT/HCPCS: 36415; 36430; 71045; 80048; 80053; 80061; 82274; 83036; 83735; 83880; 84443; 84484; 85025; 85060; 86850; 86900; 86901; 88305; 93005; 93306; 96374; 97139; J1650; J1940; J2250; J2704; J2916; J3475; J3490; P9016; U0003; U0005

== ENCOUNTER 2023-02-18 11:03 | Inpatient (IN) | payer MEDICARE ==
[~2023-02-18 11:03] MED LIST: Iopamidol-370 76% 500 ML MDV (1 ML CHARGE) ONE
[2023-02-18 12:26] LABS: ALT (SGPT) 12 U/L (8-55); AST (SGOT) 25 U/L (5-34); Albumin 3.1 g/dL (3.4-4.8); Alkaline Phosphatase 110 U/L (40-110); Anion Gap 16 mmol/L (10-20); BUN (Urea Nitrogen) 50 mg/dL (9.8-20.1); Calc. Creatinine Clearance 0 mL/min (70-130); Calcium 9.4 mg/dL (7.8-10.44); Carbon Dioxide 17 mmol/L (23-31); Chloride 114 mmol/L (98-107); Estimated GFR 31; Glucose 112 mg/dL (83-110); Potassium 4.6 mmol/L (3.5-5.1); Protein, Total 6.1 g/dL (5.8-8.1); Sodium 142 mmol/L (136-145)
[2023-02-18 12:29] LABS: #Eosinphils 0.1 thou/uL (0.0-0.7); #Lymphocytes 0.8 thou/uL (1.20-3.40); #Monocytes 0.8 thou/uL (0.11-0.59); #Neutrophils 4.9 thou/uL (1.40-6.50); %Basophils 0.5 % (0.0-1.0); %Eosinophils 2.1 % (0.0-10.0); %Lymphocytes 12.4 % (21.0-51.0); %Monocytes 12.6 % (0.0-10.0); %Neutrophils 72.5 % (42.0-75.0); Anisocytosis MODERATE=16-30 cells (100X) (0-5/hpf); Elliptocytes SLIGHT = 2-5 cells (100X) (0-1/hpf); Hemoglobin 7.3 g/dL (12.0-16.0); Hypochromia SLIGHT = 6-15 cells (100X) (0-5/hpf); MDiff Complete? YES; Mean Corpuscular HGB CONC 30.1 g/dL (32.0-36.0); Mean Corpuscular Hemoglobin 20.3 pg (27.0-31.0); Mean Corpuscular Volume 67.5 fl (78.0-98.0); Mean Platelet Volume 8.3 fL (7.4-10.4); Microcytosis MODERATE=15-30 cells (100X) (0-5/hpf); Ovalocytes SLIGHT = 2-5 cells (100X) (0-1/hpf); Platelet Count 115 10x3/uL (130-400); Platelet Morphology Comment Appears Decreased; Polychromasia SLIGHT = 2-3 cells (100X) (0-2/hpf); Red Blood Cell (RBC) Count 3.61 mill/uL (4.20-5.40); Target Cells SLIGHT = 2-5 cells (100X) (0-1/hpf); White Blood Cell (WBC) Count 6.7 10x3/uL (4.8-10.8)
[2023-02-18] MEDS ORDERED: cefTRIAXone (ROCEPHIN) 1 GM VIAL ONE ×2 (13:37→13:39)
[2023-02-18] MEDS ORDERED: Sodium Chloride 0.9% 100 ML ONE (13:37)
[2023-02-18 14:05] LABS: Bilirubin Negative (Negative); Blood, Urine Large (Negative); Glucose, Urine (Dipstick) Negative (Negative); Ketone, Urine Trace mg/dL (Negative); Leukocyte Small (Negative); Nitrite Positive (Negative); Protein, Urine (Dipstick) 30 mg/dL (Neg-Trace); pH, Urine 5.5 (5.0-9.0)
[2023-02-18 14:09] LABS: Clarity Cloudy (Clear); Specific Gravity, Urine 1.018 (1.002-1.036)
[2023-02-18 14:10] LABS: Bacteria/HPF 3+ HPF (None Seen); WBC/HPF 21-50 HPF (0-3)
[2023-02-18 16:36] LABS: Lactic Acid 1.7 mmol/L (0.5-2.2)
[2023-02-18] MEDS ORDERED: Ondansetron ODT 4 MG TAB SL PRN (19:43)
[2023-02-18 21:10] VITALS: BMI 61.2
[2023-02-18] MEDS: Sodium Chloride 0.9% 1,000 ML IV SCH (22:58)
[2023-02-18] MEDS: Acetaminophen 325 MG TAB PO PRN (22:59)
[2023-02-18] MEDS: Metoprolol Tartrate 100 MG TAB PO SCH (22:59)
[2023-02-19 05:36] LABS: Anion Gap 15 mmol/L (10-20); BUN (Urea Nitrogen) 49 mg/dL (9.8-20.1); Calc. Creatinine Clearance 79 mL/min (70-130); Calcium 9.3 mg/dL (7.8-10.44); Carbon Dioxide 18 mmol/L (23-31); Chloride 113 mmol/L (98-107); Estimated GFR 33; Glucose 66 mg/dL (83-110); Potassium 4.2 mmol/L (3.5-5.1); Sodium 142 mmol/L (136-145)
[2023-02-19 06:28] LABS: Elliptocytes SLIGHT = 2-5 cells (100X) (0-1/hpf); Eosinophils 1 % (0-10); Hemoglobin 7.4 g/dL (12.0-16.0); Hypochromia MODERATE=16-30 cells (100X) (0-5/hpf); Lymphocytes 17 % (21-51); MDiff Complete? YES; Mean Corpuscular HGB CONC 31.6 g/dL (32.0-36.0); Mean Corpuscular Hemoglobin 21.7 pg (27.0-31.0); Mean Corpuscular Volume 68.8 fl (78.0-98.0); Mean Platelet Volume 6.9 fL (7.4-10.4); Microcytosis SLIGHT = 6-15 cells (100X) (0-5/hpf); Monocytes 12 % (0-10); Neutrophil 69 % (42-75); Platelet Count 102 10x3/uL (130-400); Platelet Morphology Comment Appears Decreased; Polychromasia SLIGHT = 2-3 cells (100X) (0-2/hpf); RBC Distribution Width 22.5 % (11.5-14.5); Red Blood Cell (RBC) Count 3.41 mill/uL (4.20-5.40); Target Cells MODERATE= 6-15 cells (100X) (0-1/hpf); White Blood Cell (WBC) Count 5.4 10x3/uL (4.8-10.8)
[2023-02-19] MEDS: Metoprolol Tartrate 100 MG TAB PO SCH ×2 (08:14→22:02)
[2023-02-19] MEDS: Fluticasone Propionate Nasal Spray 16 gm Bottle NASAL SCH (08:14)
[2023-02-19] MEDS: Sodium Chloride 0.9% 1,000 ML IV SCH (12:44)
[2023-02-19] MEDS: cefTRIAXone\\ROCEPHIN 2 GM in Sodium Chloride 0.9% 100 ML IVPB SCH (13:04)
[2023-02-19] MEDS: Acetaminophen 325 MG TAB PO PRN (22:09)
[2023-02-20] MEDS: Sodium Chloride 0.9% 1,000 ML IV SCH ×2 (02:10→12:56)
[2023-02-20 05:11] LABS: Anion Gap 12 mmol/L (10-20); BUN (Urea Nitrogen) 46 mg/dL (9.8-20.1); Calc. Creatinine Clearance 92 mL/min (70-130); Calcium 9.2 mg/dL (7.8-10.44); Carbon Dioxide 19 mmol/L (23-31); Chloride 115 mmol/L (98-107); Estimated GFR 39; Glucose 66 mg/dL (83-110); Sodium 142 mmol/L (136-145)
[2023-02-20 05:20] LABS: Hemoglobin 7.4 g/dL (12.0-16.0); MDiff Complete? YES; Mean Corpuscular HGB CONC 31.5 g/dL (32.0-36.0); Mean Corpuscular Hemoglobin 21.6 pg (27.0-31.0); Mean Corpuscular Volume 68.6 fl (78.0-98.0); Mean Platelet Volume 7.8 fL (7.4-10.4); Platelet Count 100 10x3/uL (130-400); RBC Distribution Width 22.7 % (11.5-14.5); White Blood Cell (WBC) Count 4.9 10x3/uL (4.8-10.8)
[2023-02-20 05:21] LABS: Band 6 % (5-11); Hypochromia SLIGHT = 6-15 cells (100X) (0-5/hpf); Lymphocytes 30 % (21-51); Microcytosis SLIGHT = 6-15 cells (100X) (0-5/hpf); Monocytes 13 % (0-10); Neutrophil 50 % (42-75); Platelet Morphology Comment Appears Adequate; Polychromasia SLIGHT = 2-3 cells (100X) (0-2/hpf); Reactive Lymphocytes 1 % (0-10); Target Cells SLIGHT = 2-5 cells (100X) (0-1/hpf)
[2023-02-20] MEDS: Metoprolol Tartrate 100 MG TAB PO SCH ×2 (08:57→20:15)
[2023-02-20] MEDS: Fluticasone Propionate Nasal Spray 16 gm Bottle NASAL SCH (09:01)
[2023-02-20] MEDS ORDERED: VANCOMYCIN 1.25 GM/250 ML BAG 1.25 GM in Premix Bag 1 BAG IVPB SCH (12:00)
[2023-02-20] MEDS: cefTRIAXone\\ROCEPHIN 2 GM in Sodium Chloride 0.9% 100 ML IVPB SCH (12:57)
[2023-02-20] MEDS: Vancomycin 1.5 GRAM/300 ML BAG 1.5 GM in Premix Bag 1 BAG IVPB SCH (13:05)
[2023-02-20] MEDS: Acetaminophen 325 MG TAB PO PRN (23:28)
[2023-02-21] MEDS: Sodium Chloride 0.9% 1,000 ML IV SCH ×2 (02:17→13:53)
[2023-02-21] MEDS: Fluticasone Propionate Nasal Spray 16 gm Bottle NASAL SCH (08:59)
[2023-02-21] MEDS: Metoprolol Tartrate 100 MG TAB PO SCH ×2 (08:59→21:30)
[2023-02-21 09:02] LABS: #Basophils 0.1 thou/uL (0.0-0.2); #Eosinphils 0.2 thou/uL (0.0-0.7); #Monocytes 0.9 thou/uL (0.11-0.59); %Basophils 1.1 % (0.0-1.0); %Eosinophils 3.5 % (0.0-10.0); %Lymphocytes 16.7 % (21.0-51.0); %Monocytes 14.2 % (0.0-10.0); %Neutrophils 64.5 % (42.0-75.0); Hemoglobin 8.1 g/dL (12.0-16.0); Mean Corpuscular HGB CONC 31.1 g/dL (32.0-36.0); Mean Corpuscular Hemoglobin 21.5 pg (27.0-31.0); Mean Platelet Volume 7.8 fL (7.4-10.4); Platelet Count 129 10x3/uL (130-400); RBC Distribution Width 23.7 % (11.5-14.5); Red Blood Cell (RBC) Count 3.75 mill/uL (4.20-5.40); White Blood Cell (WBC) Count 6.1 10x3/uL (4.8-10.8)
[2023-02-21 09:09] LABS: Hypochromia MODERATE=16-30 cells (100X) (0-5/hpf); MDiff Complete? YES; Microcytosis MODERATE=15-30 cells (100X) (0-5/hpf); Platelet Morphology Comment Appears Decreased; Polychromasia SLIGHT = 2-3 cells (100X) (0-2/hpf); Target Cells SLIGHT = 2-5 cells (100X) (0-1/hpf)
[2023-02-21] MEDS: Vancomycin 1.5 GRAM/300 ML BAG 1.5 GM in Premix Bag 1 BAG IVPB SCH (12:08)
[2023-02-21] MEDS: cefTRIAXone\\ROCEPHIN 2 GM in Sodium Chloride 0.9% 100 ML IVPB SCH (13:53)
[2023-02-22] MEDS: Acetaminophen 325 MG TAB PO PRN (03:54)
[2023-02-22 04:37] LABS: Anion Gap 13 mmol/L (10-20); BUN (Urea Nitrogen) 34 mg/dL (9.8-20.1); Calc. Creatinine Clearance 86 mL/min (70-130); Calcium 9.3 mg/dL (7.8-10.44); Carbon Dioxide 18 mmol/L (23-31); Chloride 116 mmol/L (98-107); Estimated GFR 52; Glucose 73 mg/dL (83-110); Sodium 143 mmol/L (136-145)
[2023-02-22] MEDS ORDERED: Apixaban 2.5 MG TAB PO SCH (09:00)
[2023-02-22] MEDS ORDERED: Furosemide 20 MG TAB PO SCH (09:00)
[2023-02-22] MEDS: Metoprolol Tartrate 100 MG TAB PO SCH (09:22)
[2023-02-22] MEDS: Fluticasone Propionate Nasal Spray 16 gm Bottle NASAL SCH (09:23)
[2023-02-22] MEDS ORDERED: Metolazone 2.5 MG TAB PO SCH ×2 (11:00)
[2023-02-22 11:40] LABS: Vancomycin, Trough 12.6 ug/mL
[2023-02-22] MEDS ORDERED: SODIUM FERRIC GLUCONATE IVPB SCH (12:00)
[2023-02-22] MEDS ORDERED: SODIUM CHLORIDE 0.9% IVPB SCH (12:00)
[2023-02-22] MEDS ORDERED: IRON IVPB SCH (12:00)
[2023-02-22] MEDS ORDERED: VANCOMYCIN 2 GRAM/500 ML BAG 2 GM in Premix Bag 1 BAG IVPB SCH (12:00)
[2023-02-22] MEDS: Vancomycin 1.5 GRAM/300 ML BAG 1.5 GM in Premix Bag 1 BAG IVPB SCH (12:41)
[2023-02-22] MEDS: cefTRIAXone\\ROCEPHIN 2 GM in Sodium Chloride 0.9% 100 ML IVPB SCH (15:15)
[2023-02-22 17:43] VITALS: BP 122/77; TEMP 98
[2023-02-23] MEDS ORDERED: Metolazone 2.5 MG TAB PO SCH (08:30)
== END 2023-02-22 19:08 | DRG 812 ==
LOC: ERS 11:03 → ERHOLD 16:20 → 2NO 21:42
PROVIDERS: ADMIT Specialist; ATTEND Specialist
PROC: 30233N1 Transfusion of Nonautologous Red Blood Cells into Peripheral Vein, Percutaneous Approach (ICD-10-PCS; principal; 2023-02-18)
DX: D64.9 Anemia, unspecified (principal); I13.0 Hypertensive heart and chronic kidney disease with heart failure and stage 1 through stage 4 chronic kidney disease, or unspecified chronic kidney disease; I48.19 Other persistent atrial fibrillation; N39.0 Urinary tract infection, site not specified; Z68.44 Body mass index [BMI] 60.0-69.9, adult; I50.32 Chronic diastolic (congestive) heart failure; E66.01 Morbid (severe) obesity due to excess calories; G47.33 Obstructive sleep apnea (adult) (pediatric); N18.30 Chronic kidney disease, stage 3 unspecified; J32.0 Chronic maxillary sinusitis; Z90.49 Acquired absence of other specified parts of digestive tract; Z98.84 Bariatric surgery status; Z88.5 Allergy status to narcotic agent; Z88.2 Allergy status to sulfonamides; Z79.01 Long term (current) use of anticoagulants; Z79.899 Other long term (current) drug therapy; Z93.3 Colostomy status
CPT/HCPCS: 36415; 36416; 36430; 51701; 70450; 71045; 74177; 80048; 80053; 80202; 81003; 81015; 83605; 83880; 84484; 85025; 86850; 86870; 86900; 86901; 86905; 86922; 87040; 87077; 87086; 87149; 87186; 93005; 93306; 94760; 96365; J0696; J1650; J2916; J3370; J3490; J7050; P9016; Q9967

== ENCOUNTER 2023-04-19 15:25 | Inpatient (IN) | payer MEDICARE ==
[2023-04-19] MEDS ORDERED: Ondansetron ODT 4 MG TAB SL PRN (20:15)
[2023-04-19] MEDS ORDERED: Acetaminophen 325 MG TAB PO PRN (20:15)
[2023-04-19] MEDS ORDERED: Ondansetron PF 4 MG/2 ML Vial IVP PRN (20:15)
[2023-04-19] MEDS ORDERED: Sodium Chloride 0.9% 1,000 ML IV SCH (20:15)
[2023-04-19] MEDS ORDERED: Senokot S 8.6-50 MG TAB PO PRN (21:12)
[2023-04-19] MEDS ORDERED: Empagliflozin 25 MG TAB PO SCH ×2 (21:30→23:45)
[2023-04-19] MEDS ORDERED: cefTRIAXone Sodium 1 MG in Syringe 0 ML IVPB SCH (21:30)
[2023-04-19] MEDS ORDERED: Albumin 25% 25 GM/100 ML BOT IVPB SCH (21:30)
[2023-04-19] MEDS ORDERED: Potassium Chloride 20 MEQ TAB PO SCH (22:00)
[2023-04-19] MEDS ORDERED: Potassium Chloride 10 MEQ in Premix Bag 1 BAG IVPB SCH (22:00)
[2023-04-19] MEDS ORDERED: cefTRIAXone\\ROCEPHIN 1 GM in Sodium Chloride 0.9% 100 ML IVPB SCH (23:00)
[2023-04-19] MEDS ORDERED: Nystatin Powder 15 GM BOT TOP PRN (23:36)
[2023-04-19] MEDS: Sodium Chloride 0.9% 1,000 ML IV SCH (23:59)
[2023-04-20] MEDS ORDERED: NOREPINEPHRINE 8 MG/250 ML-D5W 250 ML IVPB SCH (00:30)
[2023-04-20] MEDS: Albumin 25% 25 GM/100 ML BOT IVPB SCH ×2 (00:54→05:03)
[2023-04-20 04:09] LABS: Hemoglobin 8.3 g/dL (12.0-16.0); Mean Corpuscular HGB CONC 28.2 g/dL (32.0-36.0); Mean Corpuscular Hemoglobin 20.1 pg (27.0-31.0); Mean Corpuscular Volume 71.4 fl (78.0-98.0); Platelet Count 119 10x3/uL (130-400); RBC Distribution Width 24.2 % (11.5-14.5); Red Blood Cell (RBC) Count 4.12 mill/uL (4.20-5.40); White Blood Cell (WBC) Count 3.7 10x3/uL (4.8-10.8)
[2023-04-20 04:27] LABS: Hemoglobin A1c 4.9 % (4.0-6.0)
[2023-04-20 04:39] LABS: Iron 9 ug/dL (50-170); Iron Binding Capacity, Total 206 mcg/dL (265-497)
[2023-04-20 04:40] LABS: Anion Gap 5 mmol/L (10-20); BUN (Urea Nitrogen) 38 mg/dL (9.8-20.1); Calc. Creatinine Clearance 63 mL/min (70-130); Calcium 9.1 mg/dL (7.8-10.44); Carbon Dioxide 28 mmol/L (23-31); Chloride 109 mmol/L (98-107); Estimated GFR 26; Glucose 89 mg/dL (83-110); Iron 9 ug/dL (50-170); Iron Binding Capacity, Total 211 mcg/dL (265-497); Potassium 3.4 mmol/L (3.5-5.1); Sodium 139 mmol/L (136-145)
[2023-04-20 05:04] LABS: Ferritin 115.1 ng/mL (10-291)
[2023-04-20] MEDS: Sodium Chloride 0.9% 1,000 ML IV SCH ×3 (05:05→16:56)
[2023-04-20 05:15] LABS: Delete Auto Diff?? YES; Manual Diff?? YES
[2023-04-20 05:56] LABS: Anisocytosis MODERATE=16-30 cells HPF (0-5); Band 38 % (5-11); CellaVision Operator ID LAB.JMM; Hypochromia SLIGHT = 6-15 cells HPF (0-5); Large Platelets 23.5 % (0-5); Lymphocytes 9 % (21-51); Macrocytosis SLIGHT = 6-15 cells HPF (0-5); Monocytes 3 % (0-10); Neutrophil 49 % (42-75); Nucleated RBC (Manual Ct) 1 % (0); Platelet Adequacy Comment Platelets Decreased; Polychromasia MODERATE = 3-4 cells HPF (0-2); Target Cells SLIGHT = 2-5 cells HPF (0-1); Total Cell Count 102
[2023-04-20] MEDS: Metoprolol Tartrate 100 MG TAB PO SCH ×2 (08:44→20:18)
[2023-04-20] MEDS: Ferrous Sulfate 325 MG TAB PO SCH ×2 (08:49→16:56)
[2023-04-20] MEDS: Aspirin 81 mg Enteric Coated Tablet PO SCH (08:50)
[2023-04-20] MEDS: Famotidine 20 MG TAB PO SCH ×2 (08:50→20:17)
[2023-04-20] MEDS: Potassium Chloride 20 MEQ TAB PO SCH ×2 (08:50→16:56)
[2023-04-20 12:27] VITALS: BMI 60.1
[2023-04-20] MEDS: cefTRIAXone\\ROCEPHIN 1 GM in Sodium Chloride 0.9% 100 ML IVPB SCH (16:01)
[2023-04-20] MEDS: Empagliflozin 25 MG TAB PO SCH (20:17)
[2023-04-21] MEDS: Sodium Chloride 0.9% 1,000 ML IV SCH ×3 (03:23→20:21)
[2023-04-21 06:31] LABS: Hemoglobin 8.2 g/dL (12.0-16.0); Mean Corpuscular HGB CONC 28.5 g/dL (32.0-36.0); Mean Corpuscular Hemoglobin 20.1 pg (27.0-31.0); Mean Corpuscular Volume 70.8 fl (78.0-98.0); Platelet Count 141 10x3/uL (130-400); RBC Distribution Width 24.3 % (11.5-14.5); Red Blood Cell (RBC) Count 4.07 mill/uL (4.20-5.40); White Blood Cell (WBC) Count 4.7 10x3/uL (4.8-10.8)
[2023-04-21 06:43] LABS: Delete Auto Diff?? YES; Manual Diff?? YES
[2023-04-21 06:56] LABS: Anion Gap 10 mmol/L (10-20); BUN (Urea Nitrogen) 36 mg/dL (9.8-20.1); Calc. Creatinine Clearance 79 mL/min (70-130); Carbon Dioxide 23 mmol/L (23-31); Chloride 109 mmol/L (98-107); Estimated GFR 33; Glucose 64 mg/dL (83-110); Potassium 3.4 mmol/L (3.5-5.1); Sodium 139 mmol/L (136-145)
[2023-04-21 07:11] LABS: Anisocytosis MODERATE=16-30 cells HPF (0-5); Band 10 % (5-11); CellaVision Operator ID lab.abc; Eosinophils 1 % (0-10); Hypochromia MODERATE=16-30 cells HPF (0-5); Large Platelets 5.9 % (0-5); Lymphocytes 8 % (21-51); Microcytosis SLIGHT = 6-15 cells HPF (0-5); Monocytes 6 % (0-10); Myelocyte 2 % (0-0); Neutrophil 73 % (42-75); Platelet Adequacy Comment Platelets Normal; Polychromasia SLIGHT = 2-3 cells HPF (0-2); Smudge Cells 15.8 %; Total Cell Count 101
[2023-04-21] MEDS: Famotidine 20 MG TAB PO SCH ×2 (08:15→20:21)
[2023-04-21] MEDS: Ferrous Sulfate 325 MG TAB PO SCH ×2 (08:15→15:59)
[2023-04-21] MEDS: Aspirin 81 mg Enteric Coated Tablet PO SCH (08:15)
[2023-04-21] MEDS: Potassium Chloride 20 MEQ TAB PO SCH ×2 (08:15→15:59)
[2023-04-21] MEDS: Metoprolol Tartrate 100 MG TAB PO SCH ×2 (08:16→20:21)
[2023-04-21] MEDS: cefTRIAXone\\ROCEPHIN 1 GM in Sodium Chloride 0.9% 100 ML IVPB SCH (15:59)
[2023-04-21] MEDS: Empagliflozin 25 MG TAB PO SCH (20:21)
[2023-04-22] MEDS: Sodium Chloride 0.9% 1,000 ML IV SCH ×3 (00:26→20:53)
[2023-04-22 07:42] LABS: #Eosinphils 0.1 thou/uL (0.0-0.7); #Monocytes 0.8 thou/uL (0.11-0.59); #Neutrophils 3.8 thou/uL (1.40-6.50); %Basophils 0.5 % (0.0-1.0); %Eosinophils 1.2 % (0.0-10.0); %Lymphocytes 16.8 % (21.0-51.0); %Monocytes 14.4 % (0.0-10.0); %Neutrophils 65.4 % (42.0-75.0); Mean Corpuscular HGB CONC 29.2 g/dL (32.0-36.0); Mean Corpuscular Hemoglobin 20.2 pg (27.0-31.0); Platelet Count 157 10x3/uL (130-400); RBC Distribution Width 24.2 % (11.5-14.5); Red Blood Cell (RBC) Count 3.97 mill/uL (4.20-5.40); White Blood Cell (WBC) Count 5.8 10x3/uL (4.8-10.8)
[2023-04-22] MEDS: Famotidine 20 MG TAB PO SCH ×2 (08:05→20:51)
[2023-04-22] MEDS: Metoprolol Tartrate 100 MG TAB PO SCH ×2 (08:05→20:51)
[2023-04-22] MEDS: Ferrous Sulfate 325 MG TAB PO SCH ×2 (08:05→17:36)
[2023-04-22] MEDS: Aspirin 81 mg Enteric Coated Tablet PO SCH (08:05)
[2023-04-22] MEDS: Potassium Chloride 20 MEQ TAB PO SCH ×2 (08:06→17:36)
[2023-04-22 08:12] LABS: Anion Gap 15 mmol/L (10-20); BUN (Urea Nitrogen) 33 mg/dL (9.8-20.1); Calc. Creatinine Clearance 95 mL/min (70-130); Carbon Dioxide 21 mmol/L (23-31); Chloride 108 mmol/L (98-107); Estimated GFR 41; Glucose 61 mg/dL (83-110); Potassium 3.5 mmol/L (3.5-5.1); Sodium 140 mmol/L (136-145)
[2023-04-22 08:25] LABS: Anisocytosis MODERATE=16-30 cells HPF (0-5); Elliptocytes SLIGHT = 2-5 cells HPF (0-1); Hypochromia MODERATE=16-30 cells HPF (0-5); Microcytosis SLIGHT = 6-15 cells HPF (0-5); Platelet Adequacy Comment Platelets Normal; Poikilocytosis SLIGHT = 6-15 cells HPF (0-5); Polychromasia MODERATE = 3-4 cells HPF (0-2); Stomatocytes SLIGHT = 2-5 cells HPF (0-1); Tear Drops SLIGHT = 2-5 cells HPF (0-1)
[2023-04-22] MEDS ORDERED: Sulfameth/Trimethoprim DS 800-160mg TAB PO SCH (09:00)
[2023-04-22] MEDS: Nitrofurantoin Monohyd/M-Cryst 100 MG CAP PO SCH ×2 (09:55→20:51)
[2023-04-22] MEDS: Empagliflozin 25 MG TAB PO SCH (20:52)
[2023-04-23] MEDS: Sodium Chloride 0.9% 1,000 ML IV SCH ×2 (04:33→14:54)
[2023-04-23 07:26] LABS: Anion Gap 14 mmol/L (10-20); BUN (Urea Nitrogen) 30 mg/dL (9.8-20.1); Calc. Creatinine Clearance 109 mL/min (70-130); Calcium 9.2 mg/dL (7.8-10.44); Carbon Dioxide 23 mmol/L (23-31); Chloride 109 mmol/L (98-107); Estimated GFR 48; Glucose 68 mg/dL (83-110); Potassium 3.9 mmol/L (3.5-5.1); Sodium 142 mmol/L (136-145)
[2023-04-23] MEDS: Aspirin 81 mg Enteric Coated Tablet PO SCH (08:51)
[2023-04-23] MEDS: Ferrous Sulfate 325 MG TAB PO SCH ×2 (08:51→17:35)
[2023-04-23] MEDS: Nitrofurantoin Monohyd/M-Cryst 100 MG CAP PO SCH ×2 (08:52→21:01)
[2023-04-23] MEDS: Famotidine 20 MG TAB PO SCH ×2 (08:52→21:01)
[2023-04-23] MEDS: Metoprolol Tartrate 100 MG TAB PO SCH ×2 (08:55→21:01)
[2023-04-23] MEDS: Potassium Chloride 20 MEQ TAB PO SCH ×2 (08:55→17:36)
[2023-04-23] MEDS: Empagliflozin 25 MG TAB PO SCH (21:01)
[2023-04-24 06:48] LABS: Anion Gap 14 mmol/L (10-20); BUN (Urea Nitrogen) 26 mg/dL (9.8-20.1); Calc. Creatinine Clearance 120 mL/min (70-130); Calcium 9.3 mg/dL (7.8-10.44); Carbon Dioxide 23 mmol/L (23-31); Chloride 110 mmol/L (98-107); Estimated GFR 54; Glucose 58 mg/dL (83-110); Potassium 3.8 mmol/L (3.5-5.1); Sodium 143 mmol/L (136-145)
[2023-04-24] MEDS: Potassium Chloride 20 MEQ TAB PO SCH ×2 (08:38→16:51)
[2023-04-24] MEDS: Aspirin 81 mg Enteric Coated Tablet PO SCH (08:38)
[2023-04-24] MEDS: Famotidine 20 MG TAB PO SCH (08:38)
[2023-04-24] MEDS: Ferrous Sulfate 325 MG TAB PO SCH ×2 (08:38→16:51)
[2023-04-24] MEDS: Metoprolol Tartrate 100 MG TAB PO SCH (08:38)
[2023-04-24] MEDS: Nitrofurantoin Monohyd/M-Cryst 100 MG CAP PO SCH (08:38)
[2023-04-24] MEDS ORDERED: Sodium Chloride 0.9% 1,000 ML IV SCH (10:30)
[2023-04-24 17:16] VITALS: BP 139/90; TEMP 97.4
== END 2023-04-24 17:15 | DRG 683 ==
LOC: T4-B 15:25 → INTOOBSV 15:25 → OBSVTOIN 23:14 → CCU 23:24 → T4-B 04-20 21:16
PROVIDERS: ADMIT Specialist; ATTEND Specialist
PROC: 30233J1 Transfusion of Nonautologous Serum Albumin into Peripheral Vein, Percutaneous Approach (ICD-10-PCS; principal; 2023-04-19)
DX: N17.9 Acute kidney failure, unspecified (principal); N39.0 Urinary tract infection, site not specified; I11.0 Hypertensive heart disease with heart failure; I50.9 Heart failure, unspecified; I48.91 Unspecified atrial fibrillation; E66.01 Morbid (severe) obesity due to excess calories; G47.33 Obstructive sleep apnea (adult) (pediatric); I95.9 Hypotension, unspecified; E88.09 Other disorders of plasma-protein metabolism, not elsewhere classified; E87.6 Hypokalemia; D64.9 Anemia, unspecified; Z86.73 Personal history of transient ischemic attack (TIA), and cerebral infarction without residual deficits; Z90.49 Acquired absence of other specified parts of digestive tract; Z98.890 Other specified postprocedural states; Z88.5 Allergy status to narcotic agent; Z88.2 Allergy status to sulfonamides
CPT/HCPCS: 36415; 36416; 80048; 82607; 82728; 83036; 83540; 83550; 84145; 84443; 85025; 96374; G0378; J0696; J1650; J3480; J3490; J7050; P9047